=== PATIENT | female | born 2000 | race African-American/Black ===

== ENCOUNTER 2022-05-11 11:50 | Emergency (ER) | payer MEDICAID ==
[~2022-05-11] VITALS: Ht 162.6 cm; Wt 75.0 kg
[2022-05-11 11:52] VITALS: BP 129/85
[2022-05-11] MEDS ORDERED: IPRATROPIUM/ALBUTEROL 0.5-3(2.5)MG/3ML NEB HHN ONE ×3 (12:30→15:30)
[2022-05-11] MEDS ORDERED: ALBU6.7H3 INH (15:18)
[2022-05-11] MEDS ORDERED: P20 MT (15:18)
[2022-05-11] MEDS ORDERED: PREDNISONE 20MG TABLET PO ONE (15:30)
== END 2022-05-11 16:50 | disposition home or self-care (01) ==
LOC: ER 11:50
DX: J45.901 Unspecified asthma with (acute) exacerbation (principal)
CPT/HCPCS: 87426; 94640; 99283; C9803; J7512; Z7610

== ENCOUNTER 2022-06-21 09:30 | Emergency (ER) | payer MEDICAID ==
[~2022-06-21] VITALS: Ht 160 cm; Wt 67.0 kg
[~2022-06-21 09:30] MED LIST: ALBU6.7H3 INH; P20 MT
[2022-06-21 09:35] VITALS: BP 110/72
[2022-06-21] MEDS ORDERED: ALBUTEROL (0.083%) 2.5MG/3ML NEB HHN ONE (13:15)
[2022-06-21] MEDS ORDERED: PREDNISONE 20MG TABLET PO ONE (13:15)
[2022-06-21 13:24] LABS: BASOPHILS % 0.4 % (0.0-2.0); EOSINOPHILS % 3.3 % (0.0-5.0); HEMATOCRIT. 39.5 % (36.0-48.0); HEMOGLOBIN. 13.1 g/dL (12.0-16.0); LYMPHOCYTES % 26.6 % (20.0-50.0); MEAN CORPUSCULAR HEMOGLOBIN 29.4 pg (28.0-32.0); MEAN CORPUSCULAR VOLUME 88.9 fL (81.0-99.0); MEAN PLATELET VOLUME 8.7 fl (7.4-10.4); MONOCYTES % 5.5 % (2.0-8.0); NEUTROPHILS % 64.2 % (40.0-76.0); PLATELET 312 x1000/uL (130-400); RED BLOOD CELL COUNT 4.45 mill/uL (4.2-5.4); RED CELL DISTRIBUTION WIDTH 13.6 % (11.6-14.6)
[2022-06-21 13:35] LABS: CHLORIDE 104 mEq/L (98-107)
[2022-06-21 13:37] LABS: HCG SCREEN NEGATIVE
[2022-06-21] MEDS ORDERED: ALBU18HF2 IH (14:23)
[2022-06-21] MEDS ORDERED: P20 MT (14:23)
== END 2022-06-21 14:47 | disposition home or self-care (01) ==
LOC: ER 09:30
DX: R06.02 Shortness of breath (principal); J45.909 Unspecified asthma, uncomplicated
CPT/HCPCS: 36415; 71045; 80053; 81025; 84484; 84703; 85025; 93005; 99285; J7512

== ENCOUNTER 2022-09-06 20:37 | Emergency (ER) | payer MEDICAID, OTHER ==
[~2022-09-06] VITALS: Ht 160 cm; Wt 62.0 kg
[~2022-09-06 20:37] MED LIST changes: +ALBU18HF2 IH
[2022-09-06 20:50] VITALS: BP 135/82
[2022-09-06] MEDS ORDERED: METHYLPREDNISOLONE SOD SUCC 125 MG/2 ML VIAL IM STA (22:55)
[2022-09-06] MEDS ORDERED: IBUPROFEN 600MG TABLET PO STA (22:59)
[2022-09-06] MEDS ORDERED: CEFTRIAXONE SODIUM 1 G/VIAL IM ONE (23:00)
[2022-09-06] MEDS ORDERED: LIDOCAINE HCL/PF 1% 10 MG/ML 5ML VIAL INFIL ONE (23:00)
[2022-09-06] MEDS ORDERED: BACITRACIN ZINC OINT UDPKT TOP ONE (23:15)
[2022-09-06] MEDS ORDERED: ACETAMINOPHEN 325MG TABLET PO STA (23:33)
[2022-09-07] MEDS ORDERED: ACET-2708 PO (00:45)
[2022-09-07] MEDS ORDERED: ALBU18HF2 IH (00:45)
[2022-09-07] MEDS ORDERED: CIPR1DRO2 RIGHT EAR (00:45)
[2022-09-07] MEDS ORDERED: AMOX1TAB16 MT (00:45)
[2022-09-07] MEDS ORDERED: CLIN-194 PO (00:45)
== END 2022-09-07 01:34 | disposition home or self-care (01) ==
LOC: ER 20:37
DX: O26.891 Other specified pregnancy related conditions, first trimester (principal); H60.11 Cellulitis of right external ear; J45.901 Unspecified asthma with (acute) exacerbation; Z3A.01 Less than 8 weeks gestation of pregnancy
CPT/HCPCS: 96372; 99283; J0696; J3490; Z7610; J2930